=== PATIENT | female | born 2000 | race Caucasian/White ===

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

== ENCOUNTER 2022-09-23 17:44 | Emergency (ER) | payer BC, OTHER, SELFPAY ==
--- NOTE | 2022-09-23 18:13 | ED.URI ---
HPI - URI/Sore Throat General Chief Complaint: Upper Respiratory Infection Stated Complaint: headache,bilateral ear pain Time Seen by Provider: 09/23/22 18:06 Source: patient Mode of arrival: ambulatory Limitations: no limitations History of Present Illness HPI Narrative: Patient presents today complaining of a 3 day history of congestion, mild sore throat, cough, headache, nausea, intermittent fever up to 100.6, bilateral ear pain. She currently rates her pain 6/10 and has been taking DayQuil without relief. Related Data Home Medications Medication Instructions Recorded Confirmed levonorgestrel-ethinyl estradiol 1 tablet PO DAILY 12/31/21 09/23/22 0.1 mg-20 mcg tablet (Vienva) rizatriptan 5 mg tablet See Rx Instructions PO .COMPLEX 12/31/21 09/23/22 Allergies Allergy/AdvReac Type Severity Reaction Status Date / Time CIPROFLOXACIN HCL AdvReac Mild RASH Uncoded 09/23/22 17:50 Review of Systems Review of Systems: CONSTITUTIONAL: Denies body aches, chills, or sweats.+ fever EYES: Denies visual changes, redness, or discharge. ENT: Denies rhinorrhea. + congestion, bilateral ear pain, sore throat CARDIOVASCULAR: Denies chest pain, palpitations, or edema. RESPIRATORY: Denies dyspnea.+ cough GASTROINTESTINAL: Denies abdominal pain, vomiting, or diarrhea.+ nausea GENITOURINARY: Denies dysuria or hematuria. SKIN: Denies rash, itching, or wounds. MUSCULOSKELETAL: Denies back pain, joint pain, or myalgia. NEUROLOGIC: Denies numbness, tingling, or weakness.+ headache PSYCH: Denies depression or anxiety. FOR[facility]LY [facility], [facility] Past Medical History Medical History (Updated 09/23/22 @ 18:29 by Toya Astudillo, MAGNO, BC) Anxiety Depression Surgical History Surgical History History of tonsillectomy (~2009) Family History Family History Grandparent Carcinoma of colon Daughter Ocular melanoma Social History Social History Social History: never smoker Smoking status: Never smoker Alcohol intake: never Substance use: never Comments At time of signature, I have reviewed and agree with nursing past medical, surgical, social and family history unless otherwise noted. Please see nursing chart for further information. There is no relevant family history pertinent to the presenting complaint Exam Narrative: GENERAL: Well-appearing, well-nourished, and in no acute distress. HEAD: Normocephalic, atraumatic. EYES: EOMI. No redness or drainage. Conjunctivae normal. ENT: Mucous membranes pink and moist. Nares clear. No rhinorrhea. TMs normal bilaterally. Throat mildly erythematous without edema or exudate. Tonsils absent. Uvula midline. NECK: Normal AROM. Supple. No lymphadenopathy. CHEST: No respiratory distress. Clear to auscultation. HEART: Regular rate and rhythm. No murmur appreciated. Normal peripheral pulses. EXTREMITIES: Normal range of motion. No edema. SKIN: Warm, dry, no rash. Capillary refill normal. Normal skin turgor. NEURO: No focal deficits. Alert and oriented x3. Gait steady. PSYCH: Normal affect. No signs of depression or anxiety. Course Course Level of Care: Express Care Visit Vital Signs Vital signs: Vital Signs Temperature 97.5 F L 09/23/22 18:15 Pulse Rate 95 09/23/22 18:15 Respiratory Rate 16 09/23/22 18:15 Blood Pressure 127/77 09/23/22 18:15 Pulse Oximetry 99 09/23/22 18:15 Oxygen Delivery Room Air 09/23/22 18:15 Temperature 97.5 F L 09/23/22 18:15 Pulse Rate 95 09/23/22 18:15 Respiratory Rate 16 09/23/22 18:15 Blood Pressure 127/77 09/23/22 18:15 Pulse Oximetry 99 09/23/22 18:15 Oxygen Delivery Room Air 09/23/22 18:15 Reviewed. Pt has been instructed to follow up with her PCP regarding her elevated blood pressure today. MDM - URI/Sore Throat MDM Narrative
[2022-09-23 18:15] VITALS: BP 127/77; PULSE 95; RESP 16; TEMP 36.4; O2SAT 99
== END 2022-09-23 18:33 | disposition home or self-care (01) ==
PROVIDERS: Emergency Provider Nurse Practitioner
DX: J06.9 Acute upper respiratory infection, unspecified (principal); F41.9 Anxiety disorder, unspecified
CPT/HCPCS: 87081; 87880; 99213; G0463

== ENCOUNTER 2024-12-23 16:03 | Emergency (ER) | payer OTHER, SELFPAY ==
[2024-12-23 16:10] VITALS: BP 135/78; PULSE 92; RESP 16; TEMP 36.3; O2SAT 99
--- NOTE | 2024-12-23 16:10 | ED_ITS ---
HPI - Extremity Problem General Chief complaint: Neck Pain/Injury Stated complaint: Neck / Shoulder / Arm/ Head Pain Time Seen by Provider: 12/23/24 16:10 Source: patient Mode of arrival: ambulatory Limitations: no limitations History of Present Illness HPI Narrative: Shauna is a 24-year-old female patient presenting to the clinic today with complaints of right-sided neck pain that is radiating up into the right side of her head up behind her right ear and down her shoulder into her arm. Symptoms just started this morning. Thinks she may have slept on it wrong. Denies any numbness or tingling of the fingers. History of migraine headaches. Denies any nausea, vomiting, photosensitivity, dizziness, or visual changes. No history of neck injury and no known new injury. She reports pain is a 9 out of 10 c urrently. Related Data Home Medications ?Medication ?Instructions ?Recorded ?Confirmed ?Last Taken ?Type levonorgestrel-ethinyl estradiol 1 tablet PO DAILY 12/31/21 09/23/22 Unknown History 0.1 mg-20 mcg tablet (Vienva) rizatriptan 5 mg tablet See Rx Instructions PO .COMPLEX 12/31/21 09/23/22 Unknown History Allergies Allergy/AdvReac Type Severity Reaction Status Date / Time No Known Allergies Allergy Verified 12/23/24 16:27 Review of Systems Review of Systems: Pertinent positives per HPI. Patient denies any fever, chills, rash, visual changes, dizziness, cough, runny nose, sore throat, shortness of breath, chest pain, palpitations, nausea, vomiting, diarrhea, constipation, abdominal pain, or any urinary issues. [facility] Past Medical History Medical History (Updated 12/23/24 @ 16:21 by Edwin Chacko APRN) Anxiety Depression Surgical History Surgical History History of tonsillectomy (~2009) Family History Family History Grandparent Carcinoma of colon Daughter Ocular melanoma Social History Social History Social History: never smoker Smoking status: Never smoker Alcohol intake: never Substance use: never Comments At the time of my signature, I reviewed and agree with the nursing past medical, surgical, social, and family history. There is no relevant family history pertinent to the patient complaint. Exam Narrative: General: Well-developed, well nourished, in no apparent distress Head: Normocephalic, atraumatic Eyes: Pupils equally round and reactive to light bilaterally, EOM intact, sclera and conjunctive clear, no discharge, lids normal Ears: TMs intact and clear, ear canals clear, no drainage, grossly hearing normal. Nose: Nares patent, no discharge, no inflammation, no sinus tenderness. Mouth: Oropharynx without lesions or masses, good dentition, MMM. Tongue midline, even rise and fall of uvula Neck: Supple, trachea midline, no enlargement of anterior or posterior cervical nodes, no thyroid masses or goiter palpable. Cardio: Regular rate and rhythm, s1 and s2 normal, no murmur appreciated. Resp: Clear to auscultation bilaterally anteriorly and posteriorly, no rhonchi, rales, wheezing or rubs Musculoskeletal: No deformity, tender to palpation over the right posterior lateral cervical musculature, pain when turning her head to the left against resistance, some pain with flexion of the neck but no pain with hyperextension of the neck, negative drop-arm test, negative empty and full can test, grossly normal range of motion, muscle strength strong and equal, bilateral hand grasp strong and equal, peripheral pulse strong, no edema, no cyanosis, normal gait and station Neuro: Alert and oriented x4 with normal speech, no focal deficits, cranial nerves I through XII intact, muscle strength 5 out of 5, sensation intact bilaterally, negative Romberg test Course Course Emergency Course: Portions of this record may have been created with voice recognition software. Level of Care: Express Care Visit Vital Signs Vital signs: Vital Signs Temperature 36.3 C L 12/23/24 16:10 Pulse Rate 92 12/23/24 16:10 Respiratory Rate 16 12/23/24 16:10 Blood Pressure 135/78 12/23/24 16:10 Pulse Oximetry 99 12/23/24 16:10 Oxygen Delivery Room Air 12/23/24 16:10 Temperature 36.3 C L 12/23/24 16:10 Pulse Rate 92 12/23/24 16:10 Respiratory Rate 16 12/23/24 16:10 Blood Pressure 135/78 12/23/24 16:10 Pulse Oximetry 99 12/23/24 16:10 Oxygen Delivery Room Air 12/23/24 16:10 Vital signs reviewed MDM - Extremity (Nontraumatic) MDM Narrative Medical decision making narrative: At the time of visit patient is resting comfortably on the exam table. Patient appears to be nontoxic. Plan: I suspect patient has a posterior lateral cervical strain. Neurological exam is normal in the clinic today. Patient has not had any past or present injury to her neck. Prescription for naproxen and baclofen was sent to the pharmacy. Supportive measures were discussed with the patient and they voiced understanding discharge instructions and agrees to treatment plan. Return precautions reviewed Differential Diagnosis Differential diagnosis: Likely other (Cervical strain, muscle spasm, meningitis, migraine headache, pinched nerve, degenerative disc disease, cervical radiculopathy) Discharge Plan Discharge Clinical Impression: Posterolateral cervical muscle strain Qualifiers: Encounter type: initial encounter Qualified Code(s): S16.1XXA - Strain of muscle, fascia and tendon at neck level, initial encounter Patient Disposition: Home Condition: Stable Instructions: Antibiotic Form, Cervical Strain (ED) Additional Instructions: Take any prescription medication only as prescribed-naproxen and baclofen Be mindful of sedation precautions given to you if taking a muscle relaxer. May use heat or ice to the affected area Consider massage or chiropractor adjustment if this was discussed with provider May use blue emu, lidocaine patches, or asper cream to affected area- do not apply heat or ice directly over cream- can cause burn. Complete appropriate back stretching exercises. Follow up with your PCP in 3-5 days if symptom persist. Patient Language: Bahraini Prescriptions: New baclofen 10 mg tablet 10 mg PO TID PRN (Reason: muscle spasm) 7 Days Qty: 21 0RF naproxen 500 mg tablet 500 mg PO BID PRN (Reason: pain) 7 Days Qty: 14 0RF No Action levonorgestrel-ethinyl estrad [Vienva] 0.1-20 mg-mcg tablet 1 tablet PO DAILY rizatriptan 5 mg tablet See Rx Instructions PO .COMPLEX Rx Instructions: take 1 tablet at onset of headache; if no relief, may repeat 1 tablet after at least 2 hrs PO alprazolam 0.25 mg tablet 0.25 mg PO TID PRN (Reason: anxiety) Qty: 90 0RF topiramate 25 mg tablet See Rx Instructions .ROUTE .COMPLEX Qty: 180 0RF Dose Instruction: TAKE 1 TABLET BY MOUTH ONE TIME A DAY FOR 7 DAYS THEN INCREASE TO 1 TABLET TWICE DAILY THEREAFTER Rx Instructions: TAKE 1 TABLET BY MOUTH ONE TIME A DAY FOR 7 DAYS THEN INCREASE TO 1 TABLET TWICE DAILY THEREAFTER Follow-up/Referrals: Cameron,Toya Mathis APRN [Primary Care Provider] - Time of Disposition: 16:22 Quality NIHSS Nursing Documentation ED NIHSS nursing documentation: reviewed/agree
--- OUTSIDE RECORDS SUMMARY | 2024-12-23 16:11 | XMS_ITS | Encounter Summary ---
Author Organization [facility] Address [address] [place] [address] Care Team Providers Care Ict Trainer Name Role Phone Yris Alba MD Primary Care Provider U kennedi Encounter Details Date Type Department Care Team (Late Contact Info) Description 2001 Outpatient Historical [facility] Pediatrics [place] 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 Gender Identity Not on file Sexual Orientation Not on file documented as of this encounter Plan of Treatment Upcoming Encounters Date Type Department Care Team (Late Contact Info) Description 01/25/2025 1:00 PM CDT Office Visit [facility] MAGNETIC DOCTOR - [address] [facility] [address] [place] [address] Dalila Ma NP [address] [place] [address] documented as of this encounter Visit Diagnoses Not on filedocumented in this encounter Care Teams Ict Trainer Relationship Specialty Start Date End Date Yris Alba MD NO ADDRESS ON FILE PCP - General 01 documented as of this encounter
--- OUTSIDE RECORDS SUMMARY | 2024-12-23 16:11 | XMS_ITS | Encounter Summary ---
Author Organization [facility] Address [address] [place] [address] Care Team Providers Care Dope Weigh Operator Name Role Phone Yris Alba MD Primary Care Provider U kennedi Encounter Details Date Type Department Care Team (Late Contact Info) Description 2001 Outpatient Historical [facility] Pediatrics [place] 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 Gender Identity Not on file Sexual Orientation Not on file documented as of this encounter Plan of Treatment Upcoming Encounters Date Type Department Care Team (Late Contact Info) Description 01/25/2025 1:00 PM CDT Office Visit [facility] ONLINE MEDIA DIRECTOR - [address] [facility] [address] [facility] [address] [place] [address] Dalila Ma NP [address] [place] [address] documented as of this encounter Visit Diagnoses Not on filedocumented in this encounter Care Teams Dope Weigh Operator Relationship Specialty Start Date End Date Yris Alba MD NO ADDRESS ON FILE PCP - General 01 documented as of this encounter
--- OUTSIDE RECORDS SUMMARY | 2024-12-23 16:11 | XMS_ITS | Encounter Summary ---
Author Organization [facility] Address [address] [place] [address] Care Team Providers Care Pleater Name Role Phone Yris Alba MD Primary Care Provider U kennedi Encounter Details Date Type Department Care Team (Late Contact Info) Description 2001 Outpatient Historical [facility] Pediatrics [place] 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 Gender Identity Not on file Sexual Orientation Not on file documented as of this encounter Plan of Treatment Upcoming Encounters Date Type Department Care Team (Late Contact Info) Description 01/25/2025 1:00 PM CDT Office Visit [facility] LAND MANAGEMENT SUPERVISOR - [address] [facility] [address] [place] [address] Dalila Ma NP [address] [place] [address] documented as of this encounter Visit Diagnoses Not on filedocumented in this encounter Care Teams Pleater Relationship Specialty Start Date End Date Yris Alba MD NO ADDRESS ON FILE PCP - General 01 documented as of this encounter
--- OUTSIDE RECORDS SUMMARY | 2024-12-23 16:11 | XMS_ITS | Encounter Summary ---
Author Organization [facility] Address [address] [place] [address] Care Team Providers Care Relief Worker Name Role Phone Yris Alba MD Primary Care Provider U kennedi Encounter Details Date Type Department Care Team (Late Contact Info) Description 2001 Outpatient Historical [facility] Pediatrics [place] 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 Gender Identity Not on file Sexual Orientation Not on file documented as of this encounter Plan of Treatment Upcoming Encounters Date Type Department Care Team (Late Contact Info) Description 01/25/2025 1:00 PM CDT Office Visit [facility] REHABILITATION LIAISON - [address] [facility] [facility] [address] [place] [address] Dalila Ma NP [address] [place] [address] documented as of this encounter Visit Diagnoses Not on filedocumented in this encounter Care Teams Relief Worker Relationship Specialty Start Date End Date Yris Alba MD NO ADDRESS ON FILE PCP - General 01 documented as of this encounter
--- OUTSIDE RECORDS SUMMARY | 2024-12-23 16:11 | XMS_ITS | Encounter Summary ---
Author Organization [facility] Address [address] [place] [address] Care Team Providers Care Poultry Service Technician Name Role Phone Yris Alba MD Primary Care Provider U kennedi Encounter Details Date Type Department Care Team (Late Contact Info) Description 2001 Outpatient Historical [facility] Pediatrics [place] 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 [address] [place] [address] Dalila Ma NP [address] [place] [address] documented as of this encounter Visit Diagnoses Not on filedocumented in this encounter Care Teams Poultry Service Technician Relationship Specialty Start Date End Date Yris Alba MD NO ADDRESS ON FILE PCP - General 01 documented as of this encounter
--- OUTSIDE RECORDS SUMMARY | 2024-12-23 16:11 | XMS_ITS | Encounter Summary ---
Author Organization [facility] Address [address] [place] [address] Care Team Providers Care Inside Sales Representative Name Role Phone Yris Alba MD Primary Care Provider U kennedi Encounter Details Date Type Department Care Team (Late Contact Info) Description 2001 Outpatient Historical [facility] Pediatrics [place] 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 Gender Identity Not on file Sexual Orientation Not on file documented as of this encounter Plan of Treatment Upcoming Encounters Date Type Department Care Team (Late Contact Info) Description 01/25/2025 1:00 PM CDT Office Visit [facility] DUPLICATION SPECIALIST - [address] [facility] [address] [place] [address] Dalila Ma NP [address] [place] [address] documented as of this encounter Visit Diagnoses Not on filedocumented in this encounter Care Teams Inside Sales Representative Relationship Specialty Start Date End Date Yris Alba MD NO ADDRESS ON FILE PCP - General 01 documented as of this encounter
--- OUTSIDE RECORDS SUMMARY | 2024-12-23 16:11 | XMS_ITS | Encounter Summary ---
Author Organization [facility] Address [address] [facility] Attn: [place] [address] Care Team Providers Care Marine Surveyor Name Role Phone Yris Alba MD Primary Care Provider U navailable Encounter Details Date Type Department Care Team (Late st Contact Info) Description 2001 Inpatient Historical Yris Alba MD NO ADDRESS ON FILE Single liveborn, born in hospital, delivered without mention of delivery (Primary Dx) Social History Tobacco Use Types Packs/Day Years Used Date Smoking Tobacco: Never Assessed Comments Unknown Sex and Gender Information Value Date Recorded Sex Assigned at Not on file Legal 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 Gender Identity Not on file Sexual Orientation Not on file documented as of this encounter Plan of Treatment Upcoming Encounters Date Type Department Care Team (Late Contact Info) Description 01/25/2025 1:00 PM CDT Office Visit [facility] AIR HOIST OPERATOR - [address] [facility] [address] [place] [address] Dlaila Ma NP [address] [facility] [address] [place] [address] documented as of this encounter Visit Diagnoses Diagnosis Single liveborn, born in hospital, delivered without mention of delivery- Primary documented in this encounter Care Teams Marine Surveyor Relationship Specialty Start Date End Date Yris Alba MD NO ADDRESS ON FILE PCP - General 01 documented as of this encounter
--- OUTSIDE RECORDS SUMMARY | 2024-12-23 16:11 | XMS_ITS | Referral Summary ---
Author Organization [facility] Address [address] [place] [address] Care Team Providers Care Sand Conditioner Name Role Phone Toya Barnes NP Primary Care Provider [phone] Angela Jorge MD Unavailable Encounters Date Type Department Care Team Description 12/15/2024 Results Follow-Up [facility] Primary Care at [address] [phone] Toya Barnes, CYRUS Iron level, CBC with auto differential, Differential, auto 12/14/2024 8:17 AM CDT - 12/14/2024 11:59 PM CDT Hospital Encounter [address] [phone] Iron deficiency; Leukocytosis, unspecified type Discharge Disposition: Discharge to home or self care 12/14/2024 8:00 AM CDT Lab [facility] Outpatient Lab at [address] [phone] 12/08/2024 Telephone [facility] [address] [place] [address] [address] [address] Lisa Jones 11/09/2024 Orders Only [facility] Primary Care at [address] [phone] Toya Barnes NP Leukocytosis, unspecified type (Primary Dx); Iron deficiency 11/09/2024 Orders Only [facility] Primary Care at [address] [phone] Toya Barnes NP 11/09/2024 Results Follow-Up [facility] Primary Care at [address] [phone] Toya Barnes NP Hemoglobin A1c, Vitamin D 25 hydroxy, Thyroid Function Powell, Additional followed-up results: 5 11/08/2024 2:48 PM CDT - 11/08/2024 11:59 PM CDT Hospital Encounter [address] [address] Encounter for screening examination for impaired glucose regulation and diabetes mellitus; Vitamin D deficiency; Thyroid disorder screen; Lipid screening; Annual physical exam Discharge Disposition: Discharge to home or self care 11/08/2024 3:00 PM CDT Lab [facility] Outpatient Lab at [address] [phone] 11/05/2024 Orders Only [facility] Primary Care at [address] [phone] Toya Barnes NP 11/04/2024 4:00 PM CDT Office Visit [facility] Primary Care at [address] [phone] Toya Barnes NP Annual physical exam (Primary Dx); Anxiety; Cervical cancer screening; Pre-conception counseling; Snoring; Excessive daytime sleepiness; Encounter for screening examination for impaired glucose regulation and diabetes mellitus; Thyroid disorder screen; Lipid screening; Vitamin D deficiency; Class 2 obesity due to excess calories without serious comorbidity with body mass index (BMI) of 35.0 to 35.9 in adult from Last 3 Months Allergies Active Allergy Reactions Criticality Noted Date Comments Carter Itching Low 06/11/2019 Ciprofloxacin Rash Medium 12/11/2020 Mold Cough,Headache,Short ness of breath,Sneezing High 11/04/2024 Pollen Extracts Chest tightness,Cough,Headache,Shortness of breath,Sneezing High 11/04/2024 Medications Vienva 0.1-20 mg-mcg per tablet Take 1 tablet by mouth nightly 3 Active omeprazole (PriLOSEC) 20 mg capsuleIndicati ons:Mucositis Prophylaxis,Str ess Ulcer Prophylaxis Take 1 capsule (20 mg total) by mouth every morning 1 Active cetirizine (ZyrTEC) 10 mg tabletIndicatio ns:Allergic Rhinitis Take 1 tablet (10 mg total) by mouth every morning Active triamcinolone (KENALOG) 0.1 % ointment Apply 30 Applications topically 2 (two) times a day 3 Active albuterol HFA (PROVENTIL HFA,VENTOLIN HFA,PROAIR HFA) 90 mcg/actuation inhaler Inhale 2 puffs every 6 (six) hours as needed for wheezing 3 each 1 3 Active metFORMIN XR (GLUCOPHAGE XR) 500 mg 24 hr tablet Take 1 tablet (500 mg total) by mouth daily with breakfast 90 tablet 1 5 Active Arnuity Ellipta 100 mcg/actuation inhaler INHALE 1 PUFF BY MOUTH DAILY. RINSE MOUTH WITH WATER AFTER USE. DO NOT SWALLOW 30 each 3 5 Active citalopram (CeleXA) 20 mg tablet TAKE 1 TABLET(20 MG) BY MOUTH DAILY 90 tablet 1 5 Active acidophilus-pec tin, citrus 100 million cell-10 mg capsule Take by mouth Activ e semaglutide (Wegovy) 0.25 mg/0.5 mL auto-injector Inject 0.25 mg under the skin every 7 days 3 mL 1 5 Active ergocalciferol (VITAMIN D) 50,000 unit capsule Take 1 capsule (50,000 Units total) by mouth once a week 12 capsule 1 5 Active Active Problems Problem Noted Date Diagnosed Date Class 2 obesity due to exces s calories without serious comorbidity with body mass index (BMI) of 35.0 to 35.9 in adult 11/04/2024 Assessment & Plan (11/04/2024 4:52 PM CDT): Discussed weight loss medications with pt. Pt will check with insurance on Zepbound and Wegovy. Discussed importance of stopping these mediations at least 2 months prior to trying to conceive. Also discussed OCP interaction with Zepbound and back up methods needed. Also discussed Phentermine and needing to stop 1-2 months prior to trying to conceive. Pt has been trying diet/exercise for 6+ months with no improvement, has some degree of insulin resistance and possibly CASSY. Mild intermittent asthma without complication Migraine 04/23/2023 GERD (gastroesophageal reflux disease) 3 Macromastia 07/30/2022 Overview (07/30/2022): Added automatically from request for surgery [id number] Laryngitis, acute 05/31/2022 Sore throat 05/31/2022 Acne vulgaris 11/22/2015 Melanocytic nevus 11/22/2015 Enlarged tonsils 12/25/2011 Anxiety Assessment & Plan (11/04/2024 4:50 PM CDT): Stable on Citalopram. Assessment & Plan (03/04/2024 2:04 PM CDT): Has not noticed much difference on the medication. Will increase Celexa to 20 mg daily. Pt to update me in 2-3 weeks, will either increase or switch to Wellbutrin. Assessment & Plan (01/21/2024 4:27 PM CDT): Not at goal, school stress has affected mood. Has been on Sertraline in the past but was not overly effective. Will trial Celexa, education provided, follow up in 6 weeks. Depression Assessment & Plan (03/04/2024 2:04 PM CDT): Has not noticed much difference on the medication. Will increase Celexa to 20 mg daily. Pt to update me in 2-3 weeks, will either increase or switch to Wellbutrin. Assessment & Plan (01/21/2024 4:27 PM CDT): Not at goal, has been on Sertraline in the past but was not overly effective. Will trial Celexa, education provided, follow up in 6 weeks. Immunizations Immunization Administration Dates Next Due Influenza, Quadrivalent, Spl it, Preservative Free, Intramuscular 04/25/2023 Influenza, Trivalent, Preser vative Free, Intramuscular 04/29/2024 Influenza, Unspecified 07/21/2022(Deferr ed: Patient Refused),07/21/2021(Deferred: Patient Refused) Td, adsorbed 02/16/2021 Tdap 01/18/2021 Social History Tobacco Use Types Packs/Day Years Used Date Smoking Tobacco: Former Cigarettes 0.1 3.5 0 02/18/2021 - 08/09/2024 Vaping Passive Smoke Exposure: Never Smokeless Tobacco: Never Tobacco Cessation:Counseling Given: Not Answered Comments:Quit vaping on and off PHQ-2 Answer Date Recorded PHQ-2 Total Score (If total score is 3 or more points, staff should administer the PHQ-9) 1 11/04/2024 Personal Safety Answer Date Recorded Have you ever been in or are you currently in a harmful physical or emotional relationship or is someone making you feel afraid or unsafe? 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 Gender Identity Not on file Sexual Orientation Not on file Last Filed Vital Signs Vital Sign Reading Time Taken Comments Blood Pressure 120/78 11/04/2024 4:03 PM CDT Pulse 81 11/04/2024 4:03 PM CDT Temperature 36.7 C (98 F) 11/04/2024 4:03 PM CDT Respiratory Rate 18 11/04/2024 4:03 PM CDT Oxygen Saturation 97% 11/04/2024 4: 03 PM CDT Inhaled Oxygen Concentration - - Weight 102.2 kg (225 lb 4.8 oz) 11/04/2024 4:03 PM CDT Height 170.2 cm (5' 7) 11/04/2024 4:03 PM CDT Body Mass Index 35.29 11/04/2024 4:03 PM CDT Plan of Treatment Not on file Procedures Procedure Name Priority Date/Time Associated Diagnosis Comments DIFFERENTIAL AUTO Routine 12/14/2024 8:1 7 AM CDT Leukocytosis, unspecified type CBC WITH AUTO DIFFERENTIAL Routine 12/14/2024 8:17 AM CDT Leukocytosis, unspecified type IRON Routine 12/14/2024 8:17 AM CDT Iron deficiency EGFR Routine 11/08/2024 2:48 PM CDT Annual physical exam DIFFERENTIAL AUTO Routine 11/08/2024 2:4 8 PM CDT Annual physical exam CBC WITH AUTO DIFFERENTIAL Routine 11/08/2024 2:48 PM CDT Annual physical exam COMPREHENSIVE METABOLIC PANEL Routine 11/08/2024 2:48 PM CDT Annual physical exam LIPID PANEL Routine 11/08/2024 2:48 PM CDT Lipid screening THYROID FUNCTION CASCADE Routine 11/08/2024 2:48 PM CDT Thyroid disorder screen VITAMIN D 25 HYDROXY Routine 11/08/2024 2:48 PM CDT Vitamin D deficiency HEMOGLOBIN A1C Routine 11/08/2024 2:48 PM CDT Encounter for screening examination for impaired glucose regulation and diabetes mellitus HEPATITIS C ANTIBODY Routine 11/06/2023 10:12 AM CDT Encounter for hepatitis C screening test for low risk patient from Last 3 Months or Most Recently Relevant to Health Maintenance Results * (ABNORMAL) Differential, auto (12/14/2024 8:17 AM CDT) Neutrophil abs 4.12 1.50 - 6.50 K/cumm Imm gran abs 0.02 0.00 - 0.10 K/cumm [facility] Lymphocyte abs 3.49(H) 0.80 - 3.30 K/cumm [facility] Monocyte abs 0.65 0.20 - 0.80 K/cumm [facility] Eosinophil abs 0.49 0.00 - 0.50 K/cumm [facility] Basophil abs 0.05 0.00 - 0.10 K/cumm PAUL Neutrophil pct 46.6 % PAUL Comment: Interpretive Data Percent cell count reference ranges are not reported, since discordance with absolute values may lead to misinterpretation of CBC data. Current Interpretive Data was last revised on 2017. Imm gran pct 0.2 % [facility]UL Comment: Interpretive Data Percent cell count reference ranges are not reported, since discordance with absolute values may lead to misinterpretation of CBC data. Current Interpretive Data was last revised on 2017. Lymphocyte pct 39.6 % [facility] Comment: Interpretive Data Percent cell count reference ranges are not reported, since discordance with absolute values may lead to misinterpretation of CBC data. Current Interpretive Data was last revised on 2017. Monocyte pct 7.4 % [facility] Comment: Interpretive Data Percent cell count reference ranges are not reported, since discordance with absolute values may lead to misinterpretation of CBC data. Current Interpretive Data was last revised on 2017. Eosinophil pct 5.6 % PAUL Comment: Interpretive Data Percent cell count reference ranges are not reported, since discordance with absolute values may lead to misinterpretation of CBC data. Current Interpretive Data was last revised on 2017. Basophil pct 0.6 % PAUL Comment: Interpretive Data Percent cell count reference ranges are not reported, since discordance with absolute values may lead to misinterpretation of CBC data. Current Interpretive Data was last revised on 2017. Blood 12/14/2024 8:17 AM CDT 12/14/2024 5:27 PM CDT us Toya Barnes NP LAB BLOOD ORDERABLES Final Resul t [facility] [id number] [place] [address] * (ABNORMAL) CBC with auto differential (12/14/2024 8:17 AM CDT) WBC 8.82 3.80 - 9.90 K/cumm Hgb 12.0 11.9 - 15.5 g/dL PAUL Hct 39.8 35.6 - 45.5 % [facility] Plt 388 150 - 400 K/cumm [facility] MPV 9.6 9.1 - 12.3 fL [facility] RBC 4.58 3.90 - 5.20 M/cumm [facility] MCV 86.9 81.3 - 96.4 fL [facility] MCH 26.2(L) 27.1 - 33.3 pg [facility] MCHC 30.2(L) 32.3 - 35.7 g/dL [facility] RDW CV 14.8 11.1 - 14.9 % [facility] RDW SD 46.9 35.7 - 48.1 fL [facility] NRBC abs 0.00 0.00 - 0.01 K/cumm [facility] Blood 12/14/2024 8:17 AM CDT 12/14/2024 5:27 PM CDT us Toya Barnes SHIPFITTERS SUPERVISOR LAB BLOOD ORDERABLES Final Resul t Performing Organization Address [facility] [address]/[facility] de Phone Number [facility] [id number] [address] [place] [address] * Iron level (12/14/2024 8:17 AM CDT) Pathologist [facility] Iron 40 35 - 145 mcg/dl Blood 12/14/2024 8:17 AM CDT 12/14/2024 5:27 PM CDT us Toya Barnes SHIPFITTERS SUPERVISOR LAB BLOOD ORDERABLES Final Resul t Performing Organization Address [facility] [address]/[facility] de Phone Number [facility] [address] [address] [place] [address] * eGFR (11/08/2024 2:48 PM CDT) Pathologist [facility] eGFR >90 >=60 mL/min/1. 73 m2 Comment: Interpretive Data Reference Interval Normal >/= 90 mL/min/1.73m2 Mildly decreased* 60 - 89 mL/min/1.73m2 Mildly to moderately decreased 45 - 59 mL/min/1.73m2 Moderately to severely decreased 30 - 44 mL/min/1.73m2 Severely decreased 15 - 29 mL/min/1.73m2 Kidney Failure < 15 mL/min/1.73m2 *Relative to young adult level Estimated glomerular filtration rate is determined by the 2020 CKD-EPI equation recommended by the National Kidney Foundation (A Unifying Approach to GFR Estimation: Recommendations of the NKF-ASK Task Force on Reassessing the Inclusion of Race in Diagnosing Kidney Disease, JASN 2020). The CKD-EPI equation should not be used for patients with unstable renal function and has not been validated in children and those over 70. Current interpretive data was last reviewed 2021. Blood 11/08/2024 2:48 PM CDT 11/08/2024 9:19 PM CDT Toya Barnes NP LAB BLOOD ORDERABLES Final Resul t [facility] [id number] [address] [place] [address] * (ABNORMAL) Differential, auto (11/08/2024 2:48 PM CDT) Neutrophil abs 6.41 1.50 - 6.50 K/cumm Imm gran abs 0.03 0.00 - 0.10 K/cumm [facility] Lymphocyte abs 3.49(H) 0.80 - 3.30 K/cumm [facility] Monocyte abs 0.65 0.20 - 0.80 K/cumm [facility] Eosinophil abs 1.13(H) 0.00 - 0.50 K/cumm [facility] Basophil abs 0.06 0.00 - 0.10 K/cumm [facility] Neutrophil pct 54.4 % [facility] Comment: Interpretive Data Percent cell count reference ranges are not reported, since discordance with absolute values may lead to misinterpretation of CBC data. Current Interpretive Data was last revised on 2017. Imm gran pct 0.3 % [facility] Comment: Interpretive Data Percent cell count reference ranges are not reported, since discordance with absolute values may lead to misinterpretation of CBC data. Current Interpretive Data was last revised on 2017. Lymphocyte pct 29.7 % [facility] Comment: Interpretive Data Percent cell count reference ranges are not reported, since discordance with absolute values may lead to misinterpretation of CBC data. Current Interpretive Data was last revised on 2017. Monocyte pct 5.5 % [facility] Comment: Interpretive Data Percent cell count reference ranges are not reported, since discordance with absolute values may lead to misinterpretation of CBC data. Current Interpretive Data was last revised on 2017. Eosinophil pct 9.6 % [facility] Comment: Interpretive Data Percent cell count reference ranges are not reported, since discordance with absolute values may lead to misinterpretation of CBC data. Current Interpretive Data was last revised on 2017. Basophil pct 0.5 % [facility] Comment: Interpretive Data Percent cell count reference ranges are not reported, since discordance with absolute values may lead to misinterpretation of CBC data. Current Interpretive Data was last revised on 2017. Blood 11/08/2024 2:48 PM CDT 11/08/2024 9:13 PM CDT Toya Barnes SHIPFITTERS SUPERVISOR LAB BLOOD ORDERABLES Final Resul t Performing Organization Address [facility] [address]/[facility] Co de Phone Number [facility] [phone] [address] [facility] [place] [address] * Thyroid Function Powell (11/08/2024 2:48 PM CDT) TSH 1.82 0.30 - 4.20 mcIUnit/mL Blood 11/08/2024 2:48 PM CDT 11/08/2024 9:13 PM CDT Toya Barnes SHIPFITTERS SUPERVISOR LAB BLOOD ORDERABLES Final Resul t Performing Organization Address [facility] [address]/[facility] Co de Phone Number [facility] [phone] [address] [employer] [place], [place] [id number] * (ABNORMAL) CBC with auto differential (11/08/2024 2:48 PM CDT) WBC 11.77(H) 3.80 - 9.90 K/cumm Hgb 11.5(L) 11.9 - 15.5 g/dL [facility] Hct 37.0 35.6 - 45.5 % [facility] Plt 371 150 - 400 K/cumm [facility] MPV 9.5 9.1 - 12.3 fL [facility] RBC 4.29 3.90 - 5.20 M/cumm [facility] MCV 86.2 81.3 - 96.4 fL [facility] MCH 26.8(L) 27.1 - 33.3 pg [facility] MCHC 31.1(L) 32.3 - 35.7 g/dL [facility] RDW CV 14.5 11.1 - 14.9 % [facility] RDW SD 45.4 35.7 - 48.1 fL [facility] NRBC abs 0.00 0.00 - 0.01 K/cumm [facility] Blood 11/08/2024 2:48 PM CDT 11/08/2024 9:13 PM CDT Toya Barnes SHIPFITTERS SUPERVISOR LAB BLOOD ORDERABLES Final Resul t Performing Organization Address City/[facility] [address]/[facility] de Phone Number [facility] [phone] [place] [place] [address] * (ABNORMAL) Vitamin D 25 hydroxy (11/08/2024 2:48 PM CDT) [facility] Vitamin D 25-OH 16(L) 30 - 80 ng/mL Blood 11/08/2024 2:48 PM CDT 11/08/2024 9:13 PM CDT Toya Barnes SHIPFITTERS SUPERVISOR LAB BLOOD ORDERABLES Final Resul t Performing Organization Address [facility] [address]/[facility] de Phone Number [facility] [address] [address] [employer] [address] [place], [place] [id number] * Hemoglobin A1c (11/08/2024 2:48 PM CDT) [facility] Hgb A1C 5.4 4.0 - 5.6 % Estimated Average Glucose 108 mg/dL [facility] Comment: The ADA recommends reporting an estimated Average Glucose (eAG) with all Hemoglobin A1c results using the equation derived from a study of 507 normal and diabetic adults. Minority populations were underrepresented and children were not included. (Diabetes Care 31:5433-6308, 2008). The eAG is not equivalent to a fasting glucose. Blood 11/08/2024 2:48 PM CDT 11/08/2024 9:13 PM CDT us Toya Barnes NP LAB BLOOD ORDERABLES Final Resul t [facility] [address] [address] [place] [address] * (ABNORMAL) Lipid panel (11/08/2024 2:48 PM CDT) Cholesterol 224(H) 30 - 199 mg/dL Comment: Interpretive Data Ages < or = 19 years Acceptable: <170 mg/dL Borderline high: 170-199 mg/dL High: >or= 200 mg/dL Ages > or = 20 years Desirable: <200 mg/dL Borderline high: 200-239 mg/dL High: >or= 240 mg/dL Literature References: 1. Expert Panel on Integrated Guidelines for Cardiovascular Health and Risk Reduction in Children and Adolescents. Pediatrics 2011;128:S213 2. NCEP Expert Panel. Circulation 2004;110:227 Current Interpretive Data was last revised on 2018. Triglycerides 118 <=149 mg/dL [facility] Comment: Interpretive Data Ages < or = 9 years Acceptable: <75 mg/dL Borderline high: 75-99 mg/dL High: >or= 100 mg/dL Ages 10 to 20 years Acceptable: <90 mg/dL Borderline high: 90-129 mg/dL High: >or= 130 mg/dL Ages > or = 20 years Desirable: <150 mg/dL Borderline high: 150-199 mg/dL High: 200-499 mg/dL Very high: >or= 499 mg/dL Literature References: 1. Expert Panel on Integrated Guidelines for Cardiovascular Health and Risk Reduction in Children and Adolescents. Pediatrics 2011;128:S213 2. NCEP Expert Panel. Circulation 2004;110:227 Current Interpretive Data was last revised on 2018. HDL 45 >=40 mg/dL [facility] Comment: Interpretive Data Ages < or = 19 years Acceptable: >45 mg/dL Borderline low: 40-45 mg/dL Low: <40 mg/dL Ages > or = 20 years Desirable: >or= 60 mg/dL Low: <40 mg/dL Literature References: 1. Expert Panel on Integrated Guidelines for Cardiovascular Health and Risk Reduction in Children and Adolescents. Pediatrics 2011;128:S213 2. NCEP Expert Panel. Circulation 2004;110:227 Current Interpretive Data was last revised on 2018. LDL, calculated 158(H) <=129 mg/dL [facility] Comment: Interpretive Data Ages < or = 19 years Acceptable: <110 mg/dL Borderline high: 110-129 mg/dL High: >or= 130 mg/dL Ages > or = 20 years Optimal: <100 mg/dL Near optimal: 100-129 mg/dL Borderline high: 130-159 mg/dL High: >160 mg/dL Calculated using the Nayan LDL-C estimating equation. This equation was implemented on 2024. Prior to this date LDL-C was estimated using the Friedewald equation. Literature References: 1. Expert Panel on Integrated Guidelines for Cardiovascular Health and Risk Reduction in Children and Adolescents. Pediatrics 2011;128:S213 2. NCEP Expert Panel. Circulation 2004;110:227 3. Nayan M et al. MARIANO Cardiol. 2020 November 18;5(5):540-548. doi: 10.1001/jamacardio.2020.0013 Current Interpretive Data was last revised on 2024. Non-HDL Cholesterol 179 mg/dL [facility] Comment: Interpretive Data Ages < or = 19 years Acceptable: <120 mg/dL Borderline high: 120-144 mg/dL High: >145 mg/dL Ages > or = 20 years When triglycerides are >200 mg/dL, Non-HDL cholesterol is a secondary target of therapy with treatment goals that are 30 mg/dL greater than the LDL cholesterol target. Literature References: 1. Expert Panel on Integrated Guidelines for Cardiovascular Health and Risk Reduction in Children and Adolescents. Pediatrics 2011;128:S213 2. NCEP Expert Panel. Circulation 2004;110:227 Current Interpretive Data was last revised on 2018. Chol/HDL ratio 5 PAUL Blood 11/08/2024 2:48 PM CDT 11/08/2024 9:13 PM CDT Toya Barnes SHIPFITTERS SUPERVISOR LAB BLOOD ORDERABLES Final Resul t Performing Organization Address City/[facility] [address]/[place] [address] [address] Department [place] [address] * Comprehensive metabolic panel (11/08/2024 2:48 PM CDT) Sodium 135 135 - 145 mmol/L Potassium, pl 4.1 3.3 - 4.9 mmol/L [facility] Chloride 100 97 - 110 mmol/L [facility] CO2 22 22 - 32 mmol/L [facility] Anion gap 13 2 - 15 mmol/L [facility] BUN 11 6 - 25 mg/dL [facility] Creatinine 0.68 0.60 - 1.10 mg/dL [facility] Glucose 73 70 - 199 mg/dL [facility] Comment: Interpretive Data Fasting glucose >/= 126 mg/dl is diagnostic for diabetes. Fasting is defined as no caloric intake for at least 8 hours. Fasting glucose between 100 mg/dl to 125 mg/dl is diagnostic of prediabetes. In a patient with classic symptoms of hyperglycemia or hyperglycemic crisis, a random glucose >/= 200 mg/dl is diagnostic for diabetes. In the absence of unequivocal hyperglycemia, results should be confirmed by repeat testing. The classification and Diagnosis of Diabetes Diabetes Care 202; 46: S19-S40. Current interpretive data was last revised 2022. Calcium 9.2 8.5 - 10.3 mg/dL [facility] Bilirubin, total 0.3 0.1 - 1.2 mg/dL [facility] Protein, pl 7.3 6.5 - 8.5 g/dL [facility] Albumin 4.1 3.5 - 5.0 g/dL [facility] Alk phos 64 40 - 130 Units/L [facility] ALT 22 7 - 45 Units/L [facility] AST 27 10 - 45 Units/L [facility] Blood 11/08/2024 2:48 PM CDT 11/08/2024 9:13 PM CDT us Toya Barnes SHIPFITTERS SUPERVISOR LAB BLOOD ORDERABLES Final Resul t Performing Organization Address City/[facility] [address]/[facility] [place] Number [place] [id number] [address] [facility] [place] [address] * Hepatitis C antibody Blood (11/06/2023 10:12 AM CDT) Hep C Ab Nonreactive Nonreactive Comment: Interpretive Data Nonreactive: Antibodies to HCV not detected. Does NOT exclude the possibility of recent exposure to HCV. Equivocal: Equivocal for HCV antibodies. Supplemental molecular testing will be automatically performed to determine infection status in accordance with current CDC screening recommendations. Reactive: Positive for HCV antibodies. This may represent current or past HCV infection. Supplemental molecular testing will be automatically performed to determine current infection status in accordance with current CDC screening recommendations. Interpretive data was last revised on 2019. Blood 11/06/2023 10:1 2 AM CDT 11/06/2023 3:13 PM CDT Toya Barnes NP LAB MICROBIOLOGY - GENERAL ORDER FAYE Final Result Performing Organization Address [facility] [place] [phone] [place] [address] from Last 3 Months or Most Recently Relevant to Health Maintenance Insurance [facility] CLAIMS [facility] [employer] [facility] CLAIMS [facility] Care Teams Sand Conditioner Relationship Specialty Start Date End Date Toya Barnes NP [address] [place] [address] PCP - General Family Medicine 10/30/22 Angela Jorge MD [address] [place] [address] Obstetrics and Gynecology 10/30/22
--- OUTSIDE RECORDS SUMMARY | 2024-12-23 16:11 | XMS_ITS | Encounter Summary ---
Author Organization [facility] Address [address] [place] [address] Care Team Providers Care Miniature Model Maker Name Role Phone Yris Alba MD Primary Care Provider U kennedi Encounter Details Date Type Department Care Team (Late Contact Info) Description 2001 Outpatient Historical [facility] Pediatrics [place] 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 Gender Identity Not on file Sexual Orientation Not on file documented as of this encounter Plan of Treatment Upcoming Encounters Date Type Department Care Team (Late Contact Info) Description 01/25/2025 1:00 PM CDT Office Visit [facility] SEROLOGY TECHNICIAN - [address] [facility] [address] [place] [address] Dalila Ma NP [address] [place] [address] documented as of this encounter Visit Diagnoses Not on filedocumented in this encounter Care Teams Miniature Model Maker Relationship Specialty Start Date End Date Yris Alba MD NO ADDRESS ON FILE PCP - General 01 documented as of this encounter
--- OUTSIDE RECORDS SUMMARY | 2024-12-23 16:11 | XMS_ITS | Encounter Summary ---
Author Organization [facility] Healthcare Address [address] [place] [address] Care Team Providers Care Circuit Judge Name Role Phone Toya Barnes NP Primary Care Provider [phone] Angela Jorge MD Unavailable [phone] Encounter Details Date Type Department Care Team (Late st Contact Info) Description 11/09/2024 Results Follow-Up [facility] Medical Group Primary Care at [place] [address] [place] [address] Toya Barnes NP [address] [place] [address] [address] [place] [address] Hemoglobin A1c, Vitamin D 25 hydroxy, Thyroid Function [place], Additional followed-up results: 5 Social History Tobacco Use Types Packs/Day Years Used Date Smoking Tobacco: Former Cigarettes 0.1 3.5 0 02/18/2021 - 08/09/2024 Vaping Passive Smoke Exposure: Never Smokeless Tobacco: Never Comments:Quit vaping on and off PHQ-2 Answer [...] on file 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
--- OUTSIDE RECORDS SUMMARY | 2024-12-23 16:11 | XMS_ITS | Encounter Summary ---
Author Organization [facility] Healthcare Address [address] [place] [address] Care Team Providers Care Investigator Name Role Phone Toya Barnes NP Primary Care Provider [phone] Angela Jorge MD Unavailable [phone] Encounter Details Date Type Department Care Team (Late st Contact Info) Description 12/15/2024 Results Follow-Up [facility] Medical Group Primary Care at [place] [address] [place] [address] Toya Barnes NP [address] [facility] [address] [place] [address] Iron level, CBC with auto differential, Differential, auto Social History Tobacco Use Types Packs/Day Years [...] on file 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
--- OUTSIDE RECORDS SUMMARY | 2024-12-23 16:11 | XMS_ITS | Clinical Summary ---
Author Organization [facility] Address [address] [place] [address] Phone Care Team Providers Care Staff Electrical Engineer Name Role Phone Yris Alba MD Primary Care Provider U navailable Allergies Active Allergy Reactions Criticality Noted Date Comments Carter Itching Low 06/11/2019 Ciprofloxacin Rash Medium 03/26/2023 Medications omeprazole (PriLOSEC) 20 mg Capsule, Delayed Release(E.C.) Take 20 mg by mouth daily. 06/07/2021 Active aspirin-acetamin ophen-caffeine (EXCEDRIN EXTRA STRENGTH) 250-250-65 mg Tablet Take 1 Tablet by mouth. Active cetirizine (ZyrTEC) 10 mg tablet Take 10 mg by mouth. Active levonorgestreL-e thinyl estrad (Vienva) 0.1-20 mg-mcg tablet Take 1 Tablet by mouth daily. 84 Tablet 3 12/09/2023 Active Active Problems No known active problems Encounters Date Type Department Care Team Description 12/09/2024 External Device Data STL ABSTRACTION Provider, Abstract 12/09/2024 External Device Data STL ABSTRACTION Provider, Abstract 12/08/2024 External Device Data STL ABSTRACTION Provider, Abstract 12/07/2024 External Device Data STL ABSTRACTION Provider, Abstract 11/02/2024 External Device Data STL ABSTRACTION Provider, Abstract 10/06/2024 External Device Data STL ABSTRACTION Provider, Abstract 10/06/2024 External Device Data STL ABSTRACTION Provider, Abstract 09/25/2024 External Device Data STL ABSTRACTION Provider, Abstract 09/24/2024 External Device Data STL ABSTRACTION Provider, Abstract 09/22/2024 External Device Data STL ABSTRACTION Provider, Abstract from Last 3 Months Immunizations Immunization Administration Dates Next Due INFLUENZA VACCINE QUADRIVALENT 6 MOS UP PF IM Family History Medical History Relation Name Comments Hypertension Father Other Father Colon Cancer Maternal Uncle Healthy Mother High Cholesterol Mother Colon Cancer Paternal Grandfather Breast Cancer Neg Hx Ovarian Cancer Neg Hx Relation Name Status Comments Father Maternal Uncle Alive Mother Alive Paternal Grandfather Social History Tobacco Use Types Packs/Day Years Used Date Smoking Tobacco: Never Smokeless Tobacco: Never Alcohol Use Standard Drinks/Week Comments Yes 0 (1 standard drink = 0.6 oz pur e alcohol) occ Comments No Sex and Gender Information Value Date Recorded Sex Assigned at Not on file 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 Gender Identity Not on file Sexual Orientation Not on file Last Filed Vital Signs Vital Sign Reading Time Taken Comments Blood Pressure 116/80 12/09/2023 2:49 PM CDT Pulse 86 04/16/2023 10:53 AM CDT Temperature - - Respiratory Rate - - Oxygen Saturation - - Inhaled Oxygen Concentration - - Weight 92.5 kg (204 lb) 12/09/2023 2:49 PM CDT Height 170.2 cm (5' 7) 12/09/2023 2:49 PM CDT Body Mass Index 31.95 12/09/2023 2:49 PM CDT Plan of Treatment Upcoming Encounters Date Type Department Care Team (Late st Contact Info) Description 01/25/2025 1:00 PM CDT Office Visit [facility] SERVICE DISPATCHER - [facility] [address] [facility] [address] [facility] [address] [place] [address] Dalila Ma, CYRUS [address] [facility] [address] [place] [address] Health Maintenance Due Date Last Done Comments HPV VACCINES (1 - 3-dose series) 2016 DTAP/TDAP/TD VACCINES (1 - Tdap) 2020 HEPATITIS B VACCINES (1 of 3 - 19+ 3-dose series) 2020 HPV/Cotest (21-29) 2022 INFLUENZA VACCINE (#1) 2024 04/25/2023 CHLAMYDIA SCREENING (ANNUAL) 11-24 YEARS 04/16/2024 04/16/2023, 11/13/2021, 09/29/2020 CERVICAL CANCER SCREENING 12/08/2026 PAP SMEAR 12/08/2026 12/09/2023, 11/20/2022 Procedures Procedure Name Priority Date/Time Associated Diagnosis Comments CERV/VAG CYTO AGE BASED SCREEN PAP W CT/NG, TRICH Routine 12/09/2023 3:06 PM CDT Screening for cervical cancer GC/CHLAMYDIA, UROGENITAL Routine 04/16/2023 12:10 PM CDT Screen for STD (sexually transmitted disease) from Last 3 Months or Most Recently Relevant to Health Maintenance Results * CERV/VAG CYTO AGE BASED SCREEN PAP W CT/NG, TRICH (12/09/2023 3:06 PM CDT) COMMENT (PAP): [facility] [place] Comment: This order for age-based cervical cancer and STI screening follows ACOG guidelines(PB 168, 140, XPF682). See individual assays for performing site location. CLINICAL INFORMATION [facility] [place] Comment:None given LAST MENSTRUAL PERIOD [facility] [place] Comment:None given PREV PAP: [facility] [place] Comment:None given PREV BX: [facility] [place] Comment:None given SOURCE [facility] [place] Comment:Endocervix ADEQUACY: [facility] [place] Comment: Satisfactory for evaluation. Endocervical/transformation zone component present. Age and/or menstrual status not provided PAP INTERP [facility] [place] Comment: Cytology Results: Negative for intraepithelial lesion or malignancy. COMMENT (PAP TEST) [facility] [place] Comment: This Pap test has been evaluated with computer assisted technology. FINISHING ROOM SUPERVISOR: Vinay Sanchez- [place] Comment: FUNMILAYO, CT(ASCP) CT screening location: [place] [address] [place] [address] [facility] [place] Comment: EXPLANATORY NOTE: The Pap is a screening test for cervical cancer. It is not a diagnostic test and is subject to false negative and false positive results. It is most reliable when a satisfactory sample, regularly obtained, is submitted with relevant clinical findings and history, and when the Pap result is evaluated along with historic and current clinical information. C TRAC RNA NOT DETECTED NOT DETECTED [facility] [place] N.GONORRHOEAE RNA, TMA NOT DETECTED NOT DETECTED [facility] [place] COMMENT INFECTIOUS DISEASE [facility] [place] Comment: The analytical performance characteristics of this assay, when used to test SurePath(TM) specimens have been determined by [facility]. The modifications have not been cleared or approved by the FDA. This assay has been validated pursuant to the CLIA regulations and is used for clinical purposes. For additional information, please refer to https://[employer]/faq/YFU967 (This link is being provided for information/ educational purposes only.) TRICHOMONAS VAGINALIS,QUALITAT KARINE,PAP VIAL NOT DETECTED NOT DETECTED [facility] [place] Comment: The analytical performance characteristics of this assay have been determined by [facility]. The modifications have not been cleared or approved by the FDA. This assay has been validated pursuant to the CLIA regulations and is used for clinical purposes. For additional information, please refer to http://[employer]/ faq/Trichomonastma (This link is being provided for information/ educational purposes only.) Test Performed at: [facility] [address] [place] [address] Paulino STILES Genital SWAB OF ENDOCERVIX / Unknown 12/09/2023 3:06 PM CDT 12/10/2023 1:01 AM CDT us Dalila Ma NP PATHOLOGY/CYTOLOGY ORDERABLE S Final Result [facility] [phone] [facility] [address] [place] [address] * GC/CHLAMYDIA, UROGENITAL (04/16/2023 12:10 PM CDT) C TRAC RNA NOT DETECTED NOT DETECTED [facility] [place] N.GONORRHOEAE RNA, TMA NOT DETECTED NOT DETECTED [facility] [place] COMMENT INFECTIOUS DISEASE [facility] [place] Comment: The analytical performance characteristics of this assay, when used to test SurePath(TM) specimens have been determined by [facility]. The modifications have not been cleared or approved by the FDA. This assay has been validated pursuant to the CLIA regulations and is used for clinical purposes. For additional information, please refer to https://education.[employer]/faq/ZVF293 (This link is being provided for information/ educational purposes only.) Test Performed at: [facility] [address] [address] Paulino Samson MD Genital SWAB OF ENDOCERVIX / Unknown 04/16/2023 12:10 PM CDT 04/17/2023 4:32 AM CDT Dalila Ma NP MICROBIOLOGY - GENERAL ORDER FAYE Final Result [facility] [phone] [facility] [address] [phone] from Last 3 Months or Most Recently Relevant to Health Maintenance [place] [place] [address] BLUE ACCESS/TRUE BLUE PPO [facility] Care Teams Staff Electrical Engineer Relationship Specialty Start Date End Date Yris Alba MD NO ADDRESS ON FILE PCP - General 01
--- OUTSIDE RECORDS SUMMARY | 2024-12-23 16:11 | XMS_ITS | Encounter Summary ---
Author Organization [facility] Address [address] [place] [address] Care Team Providers Care Furniture Mover Name Role Phone Yris Alba MD Primary Care Provider U kennedi Encounter Details Date Type Department Care Team (Late Contact Info) Description 2001 Outpatient Historical [facility] Pediatrics [place] 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 Gender Identity Not on file Sexual Orientation Not on file documented as of this encounter Plan of Treatment Upcoming Encounters Date Type Department Care Team (Late Contact Info) Description 01/25/2025 1:00 PM CDT Office Visit [facility] JAVA LEAD ARCHITECT - [address] [facility] [address] [place] [address] Dalila Ma NP [address] [place] [address] documented as of this encounter Visit Diagnoses Not on filedocumented in this encounter Care Teams Furniture Mover Relationship Specialty Start Date End Date Yris Alba MD NO ADDRESS ON FILE PCP - General 01 documented as of this encounter
--- OUTSIDE RECORDS SUMMARY | 2024-12-23 16:11 | XMS_ITS | Encounter Summary ---
Author Organization [facility] Address [address] [place] [address] Care Team Providers Care Help Desk Support Name Role Phone Yris Alba MD Primary Care Provider U kennedi Encounter Details Date Type Department Care Team (Late Contact Info) Description 2001 Outpatient Historical [facility] Pediatrics [place] 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 Gender Identity Not on file Sexual Orientation Not on file documented as of this encounter Plan of Treatment Upcoming Encounters Date Type Department Care Team (Late Contact Info) Description 01/25/2025 1:00 PM CDT Office Visit [facility] REFINERY OPERATOR HELPER CRUDE UNIT - [address] [facility] [address] [place] [address] Dalila Ma NP [address] [place] [address] documented as of this encounter Visit Diagnoses Not on filedocumented in this encounter Care Teams Help Desk Support Relationship Specialty Start Date End Date Yris Alba MD NO ADDRESS ON FILE PCP - General 01 documented as of this encounter
--- OUTSIDE RECORDS SUMMARY | 2024-12-23 16:11 | XMS_ITS | Clinical Summary ---
Author Organization [facility] Address [address] [place] [address] Care Team Providers Care Dipping Machine Operator Name Role Phone Toya Barnes NP Primary Care Provider [phone] Angela Jorge MD Unavailable [phone] Allergies Active Allergy Reactions Criticality Noted Date [...] (07/30/2022): Added automatically from request for surgery [id number] Laryngitis, acute 05/31/2022 Sore throat 05/31/2022 Acne [...] education provided, follow up in 6 weeks. Encounters Date Type Department Care Team Description 12/15/2024 Results Follow-Up [facility] Primary Care at [address] [phone] Toya Barnes, CYRUS Iron level, CBC with auto differential, Differential, auto 12/14/2024 8:17 AM CDT - 12/14/2024 11:59 PM CDT Hospital Encounter [address] [address] Iron deficiency; Leukocytosis, unspecified type Discharge Disposition: Discharge to home or self care 12/14/2024 8:00 AM CDT Lab [facility] Outpatient Lab at [address] [phone] 12/08/2024 Telephone [facility] [address] [place] [address] [address] [place] [address] Lisa Jones 11/09/2024 Orders Only [facility] Primary Care at [address] [phone] Toya Barnes NP Leukocytosis, unspecified type (Primary Dx); Iron deficiency 11/09/2024 Orders Only [facility] Primary Care at [address] [phone] Toya Barnes NP 11/09/2024 Results Follow-Up [facility] Primary Care at [address] [phone] Toya Barnes NP Hemoglobin A1c, Vitamin D 25 hydroxy, Thyroid Function Moffat, Additional followed-up results: 5 11/08/2024 3:00 PM CDT Lab [facility] Outpatient Lab at [address] [phone] 11/08/2024 2:48 PM CDT - 11/08/2024 11:59 PM CDT Hospital Encounter [address] [address] Encounter for screening examination for impaired glucose regulation and diabetes mellitus; Vitamin D deficiency; Thyroid disorder screen; Lipid screening; Annual physical exam Discharge Disposition: Discharge to home or self care 11/05/2024 Orders Only [facility] Primary Care at [address] [phone] Toya Barnes NP 11/04/2024 4:00 PM CDT Office Visit [facility] Primary Care at [address] [phone] Toya Barnes NP Annual physical exam (Primary Dx); Anxiety; Cervical cancer screening; Pre-conception counseling; Snoring; Excessive daytime sleepiness; Encounter for screening examination for impaired glucose regulation and diabetes mellitus; Thyroid disorder screen; Lipid screening; Vitamin D deficiency; Class 2 obesity due to excess calories without serious comorbidity with body mass index (BMI) of 35.0 to 35.9 in adult from Last 3 Months Immunizations Immunization Administration Dates Next Due Influenza, Quadrivalent, Spl it, Preservative Free, Intramuscular 04/25/2023 Influenza, Trivalent, Preser vative Free, Intramuscular 04/29/2024 Influenza, Unspecified 07/21/2022(Deferr ed: Patient Refused),07/21/2021(Deferred: Patient Refused) Td, adsorbed 02/16/2021 Tdap 01/18/2021 Surgical History Surgery Date Site/Laterality Comments TONSILLECTOMY 07/21/2010 - 07/20/2011 WISDOM TOOTH EXTRACTION 07/21/2016 - 07/20/2017 BREAST SURGERY 02/24/2023 COSMETIC SURGERY 02/24/2023 Medical History Medical History Date Comments Anemia Motion sickness GERD (gastroesophageal reflux disease) 2020 Anxiety 2019 Depression 2019 Migraines 2020 Asthma 2022 Family History Medical History Relation Name Comments Cancer Father Ajit Medina Depression Father Ajit Medina Hyperlipidemia Father Ajit Medina Hypertension Father Ajit Medina Obesity Father Ajit Medina Memory loss Maternal Grandfather Jarred Waterman 84y, CHF Maternal Grandmother Mechelle Waterman Heart disease Maternal Grandmother Mechelle Waterman Hyperlipidemia Mother Ana Medina Thyroid disease Mother Ana Medina Cancer Mother's Brother Myron Waterman Cancer Paternal Grandfather Floyd Medina Colon cancer Paternal Grandfather Floyd Mdeina Heart attack Paternal Grandmother Bindu Medina Memory loss Paternal Grandmother Bindu Medina Relation Name Status Comments Father Ajit Medina Maternal Grandfather Jarred Waterman Maternal Grandmother Mechelle Waterman Alive Mother Ana Medina Mother's Brother Myron Waterman Paternal Grandfather Floyd Medina Paternal Grandmother Bindu Medina Social History Tobacco Use Types Packs/Day Years [...] on file 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 Gender Identity Not on file Sexual Orientation Not on file Obstetrics History Comments LMP: 09/09/2022 Last Filed Vital Signs Vital Sign Reading Time Taken Comments Blood Pressure 120/78 11/04/2024 4:03 PM CDT Pulse 81 11/04/2024 4:03 PM CDT Temperature 36.7 C (98 F) 11/04/2024 4:03 PM CDT Respiratory Rate 18 11/04/2024 4:03 PM CDT Oxygen Saturation 97% 11/04/2024 4:03 PM CDT Inhaled Oxygen Concentration - - Weight 102.2 kg (225 lb 4.8 oz) 11/04/2024 4:03 PM CDT Height 170.2 cm (5' 7) 11/04/2024 4:03 PM CDT Body Mass Index 35.29 11/04/2024 4:03 PM CDT Plan of Treatment Health Maintenance Due Date Last Done Comments Varicella Vaccines (1 of 2 - 13+ 2-dose series) 2014 HPV Vaccines (1 - 3-dose series) 2016 Meningococcal B Vaccine (1 o f 2 - Standard) 2017 Hepatitis B Screening 2019 Pneumococcal vaccine <65 (1 of 2 - PCV) 2020 Cervical Cancer Screening 11/21/2023 11/20/2022 Chlamydia and Gonorrhea (GC/ CT) Screening 11/21/2023 11/20/2022 Depression Screening 11/04/2025 11/04/2024, 03/04/2024, 01/21/2024, Additional history exists Regular Well Visit/Exam 18-64 11/04/2025 11/04/2024, 11/05/2023 DTaP/Tdap/Td Vaccine (3 - Td or Tdap) 02/16/2031 02/16/2021, 01/18/2021 Hepatitis C Screening Completed 11/06/2023 Influenza Vaccine Completed 04/29/2024, 04/25/2023 Procedures Procedure Name Priority Date/Time Associated Diagnosis [...] BLOOD ORDERABLES Final Resul t [facility] [address] [place] [address] * (ABNORMAL) CBC with auto differential (12/14/2024 8:17 AM CDT) WBC 8.82 3.80 - 9.90 K/cumm Hgb 12.0 11.9 - 15.5 g/dL [facility] Hct 39.8 35.6 - 45.5 % [facility] Plt 388 150 - 400 K/cumm [facility] MPV 9.6 9.1 - 12.3 fL [facility] RBC 4.58 3.90 - 5.20 M/cumm [facility] MCV 86.9 81.3 - 96.4 fL [facility] MCH 26.2(L) 27.1 - 33.3 pg [facility] MCHC 30.2(L) 32.3 - 35.7 g/dL [facility] RDW CV 14.8 11.1 - 14.9 % [facility] RDW SD 46.9 35.7 - 48.1 fL [facility] NRBC abs 0.00 0.00 - 0.01 K/cumm [facility] Blood 12/14/2024 8:17 AM CDT 12/14/2024 5:27 PM CDT us Toya Barnes VULCANIZING PRESS OPERATOR LAB BLOOD ORDERABLES Final Resul t Performing Organization Address [facility] de Phone Number [facility] [address] Department [place] [address] * Iron level (12/14/2024 8:17 AM CDT) Pathologist [facility] Iron 40 35 - 145 mcg/dl Blood 12/14/2024 8:17 AM CDT 12/14/2024 5:27 PM CDT us Toya Barnes VULCANIZING PRESS OPERATOR LAB BLOOD ORDERABLES Final Resul t Performing Organization Address [facility] de Phone Number [facility] [address] [place] [address] * eGFR (11/08/2024 2:48 PM CDT) Pathologist [facility] eGFR >90 >=60 mL/min/1. 73 m2 Comment: [...] NP LAB BLOOD ORDERABLES Final Resul t [facility] [address] [place] [address] * (ABNORMAL) Differential, auto (11/08/2024 2:48 PM CDT) Neutrophil abs 6.41 1.50 - 6.50 K/cumm Imm gran abs 0.03 0.00 - 0.10 K/cumm [facility] Lymphocyte abs 3.49(H) 0.80 - 3.30 K/cumm [facility] Monocyte abs 0.65 0.20 - 0.80 K/cumm [facility] Eosinophil abs 1.13(H) 0.00 - 0.50 K/cumm [facility] Basophil abs 0.06 0.00 - 0.10 K/cumm [facility] Neutrophil pct 54.4 % [facility] Comment: Interpretive Data Percent cell count reference ranges are not reported, since discordance with absolute values may lead to misinterpretation of CBC data. Current Interpretive Data was last revised on 2017. Imm gran pct 0.3 % [facility] Comment: Interpretive Data Percent cell count reference ranges are not reported, since discordance with absolute values may lead to misinterpretation of CBC data. Current Interpretive Data was last revised on 2017. Lymphocyte pct 29.7 % [facility] Comment: Interpretive Data Percent cell count reference ranges are not reported, since discordance with absolute values may lead to misinterpretation of CBC data. Current Interpretive Data was last revised on 2017. Monocyte pct 5.5 % [facility] Comment: Interpretive Data Percent cell count reference ranges are not reported, since discordance with absolute values may lead to misinterpretation of CBC data. Current Interpretive Data was last revised on 2017. Eosinophil pct 9.6 % [facility] Comment: Interpretive Data Percent cell count reference ranges are not reported, since discordance with absolute values may lead to misinterpretation of CBC data. Current Interpretive Data was last revised on 2017. Basophil pct 0.5 % [facility] Comment: Interpretive Data Percent cell count reference ranges are not reported, since discordance with absolute values may lead to misinterpretation of CBC data. Current Interpretive Data was last revised on 2017. Blood 11/08/2024 2:48 PM CDT 11/08/2024 9:13 PM CDT Toya Barnes VULCANIZING PRESS OPERATOR LAB BLOOD ORDERABLES Final Resul t Performing Organization Address [facility] Co de Phone Number [facility] [address] [facility] [place] [address] * Thyroid Function Moffat (11/08/2024 2:48 PM CDT) TSH 1.82 0.30 - 4.20 mcIUnit/mL Blood 11/08/2024 2:48 PM CDT 11/08/2024 9:13 PM CDT Toya Barnes VULCANIZING PRESS OPERATOR LAB BLOOD ORDERABLES Final Resul t Performing Organization Address [facility] Co de Phone Number [facility] [address] [employer] [place], [place] [id number] * (ABNORMAL) CBC with auto differential (11/08/2024 2:48 PM CDT) WBC 11.77(H) 3.80 - 9.90 K/cumm Hgb 11.5(L) 11.9 - 15.5 g/dL [facility] Hct 37.0 35.6 - 45.5 % [facility] Plt 371 150 - 400 K/cumm [facility] MPV 9.5 9.1 - 12.3 fL [facility] RBC 4.29 3.90 - 5.20 M/cumm [facility] MCV 86.2 81.3 - 96.4 fL [facility] MCH 26.8(L) 27.1 - 33.3 pg [facility] MCHC 31.1(L) 32.3 - 35.7 g/dL [facility] RDW CV 14.5 11.1 - 14.9 % [facility] RDW SD 45.4 35.7 - 48.1 fL [facility] NRBC abs 0.00 0.00 - 0.01 K/cumm [facility] Blood 11/08/2024 2:48 PM CDT 11/08/2024 9:13 PM CDT Toya Barnes VULCANIZING PRESS OPERATOR LAB BLOOD ORDERABLES Final Resul t Performing Organization Address City/[facility] de Phone Number [facility] [address] [place] [address] * (ABNORMAL) Vitamin D 25 hydroxy (11/08/2024 2:48 PM CDT) [facility] Vitamin D 25-OH 16(L) 30 - 80 ng/mL Blood 11/08/2024 2:48 PM CDT 11/08/2024 9:13 PM CDT Toya Barnes NP LAB BLOOD ORDERABLES Final Resul t Performing Organization Address [facility] de Phone Number [facility] [address] Department of [employer] [place], [place] [id number] * Hemoglobin A1c (11/08/2024 2:48 PM CDT) [facility] Hgb A1C 5.4 4.0 - 5.6 % Estimated Average Glucose 108 mg/dL [facility] Comment: The ADA recommends reporting an estimated Average Glucose (eAG) with all Hemoglobin A1c results using the equation derived from a study of 507 normal and diabetic adults. Minority populations were underrepresented and children were not included. (Diabetes Care 31:0465-9464, 2008). The eAG is not equivalent to a fasting glucose. Blood 11/08/2024 2:48 PM CDT 11/08/2024 9:13 PM CDT us Toya Barnes NP LAB BLOOD ORDERABLES Final Resul t [facility] [address] [place] [address] * (ABNORMAL) Lipid panel (11/08/2024 2:48 PM [...] 3. Nayan M et al. MARIANO Cardiol. 2019November 18;5(5):540-548. doi: [email or web address] Current Interpretive Data was [...] CDT 11/08/2024 9:13 PM CDT Toya Barnes VULCANIZING PRESS OPERATOR LAB BLOOD ORDERABLES Final Resul t Performing Organization Address City/[facility]/[place] [address] [address] Department [place] [address] * Comprehensive metabolic panel (11/08/2024 2:48 PM [...] classification and Diagnosis of Diabetes Diabetes Care 2021; 46: S19-S40. Current interpretive data was last [...] 11/08/2024 9:13 PM CDT us Toya Barnes VULCANIZING PRESS OPERATOR LAB [place]LOOD [place] [address] [address] [place] [address] * Hepatitis C antibody Blood (11/06/2023 10:12 [...] ORDER FAYE Final Result Performing Organization Address City/State/[facility] [place] Number [place] [address] [address] Department [place] [address] from Last 3 Months or Most Recently Relevant to Health Maintenance Insurance [facility] CLAIMS [facility] OPEN ACCESS [employer] [place] [facility] CLAIMS [facility] OPEN ACCESS Care Teams Dipping Machine Operator Relationship Specialty Start Date End Date Toya Barnes NP [address] [place] [address] PCP - General Family Medicine 10/30/22 Angela Jorge MD [address] [place] [address] Obstetrics and Gynecology 10/30/22
--- OUTSIDE RECORDS SUMMARY | 2024-12-23 16:11 | XMS_ITS | Encounter Summary ---
Author Organization [facility] Address [address] [place] [address] Care Team Providers Care Professor Of Religious Studies Name Role Phone Yris Alba MD Primary Care Provider U kennedi Encounter Details Date Type Department Care Team (Late Contact Info) Description 2001 Outpatient Historical [facility] [place] 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 Gender Identity Not on file Sexual Orientation Not on file documented as of this encounter Plan of Treatment Upcoming Encounters Date Type Department Care Team (Late Contact Info) Description 01/25/2025 1:00 PM CDT Office Visit [facility] [employer]LL[employer] BASTER JUMPBASTING - [address] [facility] [address] [place] [address] Dalila Ma NP [address] [place] [address] documented as of this encounter Visit Diagnoses Not on filedocumented in this encounter Care Teams Professor Of Religious Studies Relationship Specialty Start Date End Date Yris Alba MD NO ADDRESS ON FILE PCP - General 01 documented as of this encounter
--- OUTSIDE RECORDS SUMMARY | 2024-12-23 16:11 | XMS_ITS | Encounter Summary ---
Author Organization [facility] Address [address] [place] [address] Care Team Providers Care Marble Carver Name Role Phone Yris Alba MD Primary Care Provider U kennedi Encounter Details Date Type Department Care Team (Late Contact Info) Description 2001 Outpatient Historical [facility] [place] 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 Gender Identity Not on file Sexual Orientation Not on file documented as of this encounter Plan of Treatment Upcoming Encounters Date Type Department Care Team (Late Contact Info) Description 01/25/2025 1:00 PM CDT Office Visit [facility] OPTOMETRIST/PRACTICE OWNER - [address] [facility] [address] [place] [address] Dalial Ma NP [address] [place] [address] documented as of this encounter Visit Diagnoses Not on filedocumented in this encounter Care Teams Marble Carver Relationship Specialty Start Date End Date Yris Alba MD NO ADDRESS ON FILE PCP - General 01 documented as of this encounter
== END 2024-12-23 16:22 | disposition home or self-care (01) ==
PROVIDERS: Emergency Provider Nurse Practitioner Family; PCP Nurse Practitioner Family
DX: S16.1XXA Strain of muscle, fascia and tendon at neck level, initial encounter (principal); X58.XXXA Exposure to other specified factors, initial encounter; F41.9 Anxiety disorder, unspecified
CPT/HCPCS: 99213; G0463